=== PATIENT | female | born 1965 | race Hispanic/Latino ===

== ENCOUNTER 2019-05-03 21:43 | Emergency (ER) | payer SELFPAY ==
[2019-05-03] MEDS ORDERED: KETOROLAC TROMETHAMINE 30MG/ML ONE (22:44)
[2019-05-03] MEDS ORDERED: ORPHENADRINE CITRATE 30 MG/ML ML ONE (22:44)
[2019-05-03] MEDS ORDERED: LIDOCAINE 5% TOPICAL PATCH TP ONE (22:44)
[2019-05-03 22:45] LABS: BASOPHILS % (AUTO) 0.3 % (0.0-5.0); EOSINOPHILS % (AUTO) 1.5 % (0.0-8.0); HEMATOCRIT 41.9 % (36-48); LYMPHOCYTES % (AUTO) 31.8 % (21.0-51.0); MEAN CORPUSCULAR HGB CONC 33.8 g/dL (32.0-36.0); MEAN CORPUSCULAR VOLUME 85.9 fL (79-99); MONOCYTES % (AUTO) 6.1 % (3.0-13.0); NEUTROPHILS % (AUTO) 60.3 % (40.0-77.0); PLATELET COUNT (AUTO) 312 K/uL (130-400); RED BLOOD CELL COUNT(AUTO) 4.88 MIL/uL (4.00-5.50); RED CELL DISTRIBUTION WIDTH 13.2 % (11.0-15.5); WHITE BLOOD COUNT (AUTO) 9.2 K/uL (4.8-10.8)
[2019-05-03 22:58] LABS: CREATININE 0.7 mg/dL (0.5-1.5); POTASSIUM 4.7 mmol/L (3.5-5.1)
[2019-05-04] MEDS ORDERED: DIAZEPAM 2 MG TAB ONE (01:09)
== END 2019-05-04 01:42 | disposition home or self-care (01) ==
LOC: EDH 21:43
DX: G24.3 Spasmodic torticollis (principal); Z98.51 Tubal ligation status
CPT/HCPCS: 36415; 80048; 85025; 96374; 96375; 99284; J1885; J2360

== ENCOUNTER 2023-07-25 15:38 | Emergency (ER) | payer OTHER ==
[~2023-07-25] VITALS: Ht 152.4 cm; Wt 109.8 kg
[2023-07-25 15:44] VITALS: BP 150/99; PULSE 100; RESP 20
[2023-07-25 17:22] LABS: BASOPHILS # (AUTO) 0.04 K/uL (0.00-0.20); BASOPHILS % (AUTO) 0.5 % (0.0-5.0); EOSINOPHILS # (AUTO) 0.19 K/uL (0.00-0.70); EOSINOPHILS % (AUTO) 2.2 % (0.0-8.0); HEMATOCRIT 42.6 % (36-48); IMMATURE GRANULOCYTE ABSOLUTE 0.03 K/uL (0-1); LYMPHOCYTES # (AUTO) 1.6 K/uL (1.0-4.8); LYMPHOCYTES % (AUTO) 18.3 % (21.0-51.0); MEAN CORPUSCULAR HEMOGLOBIN 27.6 pg (27.0-33.0); MEAN CORPUSCULAR HGB CONC 32.6 g/dL (32.0-36.0); MEAN CORPUSCULAR VOLUME 84.5 fL (79-99); MONOCYTES # (AUTO) 0.6 K/uL (0.1-1.0); MONOCYTES % (AUTO) 6.5 % (3.0-13.0); NEUTROPHILS # (AUTO) 6.2 K/uL (1.8-7.7); NEUTROPHILS % (AUTO) 72.1 % (40.0-77.0); PLATELET COUNT (AUTO) 309 K/uL (130-400); RED BLOOD CELL COUNT(AUTO) 5.04 MIL/uL (4.00-5.50); RED CELL DISTRIBUTION WIDTH 13.2 % (11.0-15.5); WHITE BLOOD COUNT (AUTO) 8.6 K/uL (4.8-10.8)
[2023-07-25 17:24] LABS: APPEARANCE,URINE CLEAR (CLEAR); BILIRUBIN,URINE NEGATIVE (NEGATIVE); COLOR,URINE COLORLESS (YELLOW); GLUCOSE, URINE (UA) NEGATIVE (NEGATIVE); KETONES,URINE NEGATIVE (NEGATIVE); LEUKOCYTE ESTERASE ,URINE NEGATIVE Leu/uL (NEGATIVE); NITRATE,URINE NEGATIVE (NEGATIVE); OCCULT BLOOD,URINE LARGE (NEGATIVE); PH,URINE 6.5 (5.0-8.0); PROTEIN,URINE NEGATIVE (NEGATIVE); UROBILINOGEN,URINE 0.2 mg/dL (0.2-1.0)
[2023-07-25 17:27] LABS: ADD UA MICROSCOPIC YES
[2023-07-25 17:28] LABS: BACTERIA,URINE RARE /HPF (None Seen); RBC,URINE 0-1 /HPF (0-1); SQUAMOUS EPITHELIAL CELL,UR RARE /HPF (0-2); WBC,URINE 0-1 /HPF (0-1)
[2023-07-25 17:29] LABS: HCG,QUALITATIVE URINE NEGATIVE (NEGATIVE)
[2023-07-25 17:31] LABS: CREATININE 0.7 mg/dL (0.5-1.5); POTASSIUM 4.1 mmol/L (3.5-5.1)
[2023-07-25 20:25] LABS: SARS-CoV-2, RNA, NAAT NEGATIVE SARS CoV-2 (NEGATIVE)
[2023-07-25 20:28] LABS: INFLUENZA TYPE A Negative For Type A (NEGATIVE); INFLUENZA TYPE B Negative For Type B (NEGATIVE)
== END 2023-07-25 22:25 | disposition home or self-care (01) ==
LOC: EDH 15:38
DX: S00.83XA Contusion of other part of head, initial encounter (principal); R55 Syncope and collapse; Z20.822 Contact with and (suspected) exposure to COVID-19; W18.30XA Fall on same level, unspecified, initial encounter; Y93.89 Activity, other specified; Y92.89 Other specified places as the place of occurrence of the external cause; Y99.8 Other external cause status
CPT/HCPCS: 99284; 70450; 87635; 83735; 84484; 80048; 85025; 87804 ×2; 81001; 81025; 36415; 72125; 93005; C9803

== ENCOUNTER 2023-08-14 15:28 | Emergency (ER) | payer OTHER ==
[~2023-08-14] VITALS: Ht 157.5 cm; Wt 110.2 kg
[2023-08-14 16:14] VITALS: BP 172/62; PULSE 85; RESP 18
[2023-08-14] MEDS ORDERED: GABA-529 PO (17:54)
[2023-08-14] MEDS ORDERED: ACYC-138 PO (17:54)
[2023-08-14] MEDS ORDERED: MUPI22OI2 TP (17:54)
[2023-08-14] MEDS ORDERED: NAPR-1023 PO (17:54)
[2023-08-14] MEDS ORDERED: CEFD300C3 PO (17:54)
== END 2023-08-14 18:14 | disposition home or self-care (01) ==
LOC: EDH 15:28
DX: B02.8 Zoster with other complications (principal); I88.9 Nonspecific lymphadenitis, unspecified; Z98.890 Other specified postprocedural states